=== PATIENT | female | born 1990 | race Caucasian/White ===

== ENCOUNTER 2019-09-16 21:09 | Inpatient (IN) ==
[2019-09-16] MEDS ORDERED: OXYTOCIN 30 UNITS/500 ML BAG IV PRN (21:50)
[2019-09-16] MEDS ORDERED: fentaNYL citrate 100 MCG/2 ML VIAL ONE (21:53)
[2019-09-16] MEDS ORDERED: BUPIVACAINE 0.25% 30 ML VIAL ONE (21:54)
[2019-09-16] MEDS ORDERED: fentaNYL 2MCG/ML ROPIV 1.25MG/ML 100 ML BAG EPI ONE (21:54)
[2019-09-16] MEDS ORDERED: ePHEDrine sulfate 50 MG/ML AMP ONE (21:54)
[2019-09-16] MEDS: LACTATED RINGER'S 1,000 ML IV PRN ×2 (22:00→22:59)
[2019-09-16 22:14] LABS: Hematocrit (blood only) 37.8 % (37-47); Hemoglobin 12.6 g/dL (12.0-16.0); Mean Corpuscular Hemoglobin 27.8 pg (25-34); Mean Corpuscular Volume 83.4 fL (80-100); Mean Platelet Volume 11.7 fL (7.4-10.4); Platelet Count 192 K/uL (130-400); RDW Coefficient of Variation 14.7 % (11.5-14.5); Red Blood Count 4.53 M/uL (4.2-5.4); White Blood Count 10.91 K/uL (4.8-10.8)
--- NOTE | 2019-09-16 22:36 | Anesthesiology Consultation ---
Date of Service September 16, 2019 Assessment & Plan Chart Review Chart Review: Acceptable Risk for Labor Epidural ASA ASA2E Proposed Anesthesia Anesthesia Type: Labor Epidural Risk / Benefits Reviewed With: PT / POA / Parent / Guardian, Accepts Plan and Informed Consent Obtained History Height/Weight Height: 5 ft 4 in Weight: 80.286 kg Allergies Allergy/AdvReac Type Severity Reaction Status Date / Time No Known Allergies Allergy Verified 08/10/19 09:45 Medications Home Medications Medication Instructions Recorded Confirmed Last Taken 1 tab PO DAILY #30 tab 06/06/19 09/16/19 09/16/19 vitamin,calcium,xedbsjzz-qyvb-jnimv acid tablet ferrous sulfate [Iron (ferrous 325 mg PO DAILY 09/16/19 09/16/19 09/15/19 sulfate)] Active Medications Generic Name Dose Route Start Last Admin Trade Name Freq PRN Reason Stop Dose Admin Lactated Ringer's 1,000 mls @ 125 mls/hr 09/16/19 21:50 09/16/19 22:59 Lr IV 09/18/19 21:49 125 mls/hr .Q8H PRN Administration L&D Protocol Protocol Past Medical History Medical History Anemia Exercise / Class Metabolic Activity II 4-5 Yardwork/Stairs/Walk up hill Past Family History Family History Mother Heart disease Father Hypertension Past Surgical History Surgical History H/O oral surgery Past Anesthesia History No Hx of Anesthesia Complications and No Family Hx of Anesthesia Complications History of PONV No Hx of PONV and No Hx of Motion Sickness Social History Smoking Status: Never smoker Hx Alcohol Use: Yes Hx Substance Use: No substance use type: does not use Review of Systems denies fever/cough/ colds/ chest pain/ SOB/ HARPAL denies WI/CVA/Seizure Physical Exam Vital Signs Last Vital Signs Temp 36.5 C 09/16/19 21:27 Pulse 72 09/16/19 23:31 Resp 20 09/16/19 21:27 BP 97/67 L 09/16/19 23:31 Pulse Ox 97 09/16/19 23:28 ENMT Mouth: no dentition abnormality, no chipped teeth and no loose teeth Thyromental Distance: > or= 3.5 Finger Breadths Mallampati Class: II Testing Laboratory Results 09/16/19 22:00
[2019-09-16 22:46] LABS: Mean Corpuscular Hgb Conc 33.3 g/dL (32-36)
[2019-09-16] MEDS ORDERED: fentaNYL 2MCG/ML ROPIV 1.25MG/ML 100 ML BAG EPI PRN (23:34)
[2019-09-16] MEDS ORDERED: DiphenhydrAMINE HCL 50 MG/ML VIAL IV PRN (23:34)
[2019-09-16] MEDS ORDERED: ePHEDrine sulfate 50 MG/ML AMP IV PRN (23:34)
[2019-09-16] MEDS ORDERED: ONDANSETRON INJ 2 MG/ML 2 ML VIAL IV PRN (23:34)
[2019-09-16] MEDS ORDERED: NALOXONE HCL 1 MG in SODIUM CHLORIDE 0.9% 1000ML 1,000 ML IV PRN (23:34)
[2019-09-16] MEDS ORDERED: NALBUPHINE HCL INJ 10 MG/ML AMP IV PRN (23:34)
[2019-09-16] MEDS ORDERED: NALOXONE HCL 0.4 MG/1 ML VIAL/CARP IV PRN (23:34)
--- NOTE | 2019-09-17 01:04 | History and Physical Report ---
DATE OF ADMISSION: 09/16/2019 HISTORY OF PRESENT ILLNESS: The patient is a 29-year-old G1, P0, due date 09/16/2019 making her 40 weeks today, who presented to labor and delivery with contractions every 4-5 minutes. On exam, she was found to be 4 cm dilated. Decision was therefore made to admit patient and anticipate labor. heart rate was category 1. The patient has since been admitted. COURSE: Has been unremarkable. PAST MEDICAL HISTORY: Polycystic ovary. PAST SURGICAL HISTORY: Dental surgery. SOCIAL HISTORY: The patient denies tobacco, drug, or alcohol use. ALLERGIES: No known drug allergies. FAMILY HISTORY: Noncontributory. PHYSICAL EXAMINATION: GENERAL: Well-developed, well-nourished white female in no acute distress. HEART: S1, S2, regular rhythm and rate. LUNGS: Clear to auscultation bilaterally. ABDOMEN: Gravid. PELVIC: By nurse is 4 cm. EXTREMITIES: No cyanosis, clubbing or edema. ASSESSMENT AND PLAN: A 29-year-old G1, P0 at 40 weeks, here for labor. The patient was admitted. We anticipate vaginal delivery.
--- NOTE | 2019-09-17 04:46 | Labor Progress Brief Note ---
Date of Service September 17, 2019 Pt doing well Nurse reports SROM- clear about 30 mins ago and VE was 9 cm/ +1 station Pt denies any significant pain epidural analgesia in place or discomfort FHR; CAT1 Results & Data Vital Signs (Past 12 Hours) Vital Signs Temp Pulse Resp BP Pulse Ox 09/17/19 04:38 81 95 09/17/19 04:34 78 116/68 09/17/19 04:33 76 94 09/17/19 04:32 87 94 09/17/19 04:28 86 95 09/17/19 04:26 77 94 09/17/19 04:23 76 95 09/17/19 04:21 78 94 09/17/19 04:19 68 113/70 09/17/19 04:18 70 95 09/17/19 04:15 85 94 09/17/19 04:13 79 95 09/17/19 04:10 83 94 09/17/19 04:08 83 95 09/17/19 04:04 80 114/70 09/17/19 04:03 80 96 09/17/19 03:58 91 H 97 09/17/19 03:53 84 98 09/17/19 03:49 85 126/77 09/17/19 03:48 87 96 09/17/19 03:43 76 97 09/17/19 03:38 74 96 09/17/19 03:36 82 94 09/17/19 03:34 75 112/63 09/17/19 03:33 91 H 96 09/17/19 03:28 72 94 09/17/19 03:25 72 94 09/17/19 03:23 70 95 09/17/19 03:20 76 109/64 94 09/17/19 03:18 69 93 09/17/19 03:14 66 94 09/17/19 03:13 68 95 09/17/19 03:09 82 93 09/17/19 03:08 71 95 09/17/19 03:04 75 108/65 94 09/17/19 03:03 76 95 09/17/19 02:59 61 94 09/17/19 02:58 62 95 09/17/19 02:53 72 95 09/17/19 02:49 73 109/66 09/17/19 02:48 63 94 09/17/19 02:43 73 95 09/17/19 02:42 71 94 09/17/19 02:38 73 96 09/17/19 02:36 64 111/65 09/17/19 02:35 63 94 09/17/19 02:33 66 96 09/17/19 02:30 74 93 09/17/19 02:28 72 97 09/17/19 02:25 67 93 09/17/19 02:23 66 96 09/17/19 02:20 67 111/68 09/17/19 02:19 73 94 09/17/19 02:18 72 95 09/17/19 02:13 73 95 09/17/19 02:10 73 94 09/17/19 02:08 69 95 09/17/19 02:05 71 111/68 09/17/19 02:03 61 96 09/17/19 01:58 73 95 09/17/19 01:54 75 94 09/17/19 01:53 71 95 09/17/19 01:49 69 111/66 93 09/17/19 01:48 71 95 09/17/19 01:43 70 96 09/17/19 01:38 68 96 09/17/19 01:33 84 96 09/17/19 01:31 88 92 09/17/19 01:28 79 98 09/17/19 01:23 70 95 09/17/19 01:21 70 94 09/17/19 01:20 37.0 C 72 18 116/71 09/17/19 01:18 74 93 09/17/19 01:15 67 94 09/17/19 01:13 72 96 09/17/19 01:08 73 96 09/17/19 01:04 75 112/68 09/17/19 01:03 64 97 09/17/19 00:58 75 96 09/17/19 00:53 70 97 09/17/19 00:49 61 114/66 09/17/19 00:48 65 98 09/17/19 00:43 70 97 09/17/19 00:38 68 98 09/17/19 00:34 82 116/71 09/17/19 00:33 74 97 09/17/19 00:28 74 99 09/17/19 00:23 70 99 09/17/19 00:19 75 116/68 09/17/19 00:18 70 99 10/29/19 00:13 95 H 99 09/17/19 00:08 77 98 09/17/19 00:06 63 107/65 09/17/19 00:04 96 H 93 09/17/19 00:03 96 H 95 09/16/19 23:58 72 98 09/16/19 23:53 71 98 09/16/19 23:48 62 97 09/16/19 23:47 62 108/65 09/16/19 23:43 73 98 09/16/19 23:42 77 108/64 09/16/19 23:38 78 95 09/16/19 23:37 82 108/67 09/16/19 23:33 76 96 09/16/19 23:31 72 97/67 L 09/16/19 23:28 76 18 113/72 97 09/16/19 23:27 78 110/72 09/16/19 23:25 69 116/71 09/16/19 23:23 74 97 09/16/19 23:21 82 114/68 09/16/19 23:19 82 120/61 09/16/19 23:18 84 97 09/16/19 23:17 77 136/71 09/16/19 23:13 72 136/76 97 09/16/19 23:11 69 138/80 09/16/19 23:09 62 137/77 09/16/19 23:08 74 97 09/16/19 23:07 79 137/75 09/16/19 23:05 75 138/73 09/16/19 23:03 76 138/65 97 09/16/19 23:01 90 130/60 09/16/19 22:59 70 144/62 H 09/16/19 22:57 86 139/79 09/16/19 22:55 85 127/79 09/16/19 21:43 84 134/83 09/16/19 21:37 84 141/77 H 09/16/19 21:32 73 130/87 09/16/19 21:27 36.5 C 67 20 142/85 H 09/16/19 21:26 67 142/85 H
[2019-09-17] MEDS: LACTATED RINGER'S 1,000 ML IV PRN (06:41)
[2019-09-17] MEDS ORDERED: METHYLERGONOVINE MALEATE 0.2 MG/ML AMP ONE (07:13)
[2019-09-17] MEDS ORDERED: miSOPROStol 200 MCG TAB PR ONE (07:35)
[2019-09-17] MEDS ORDERED: HYDROCORTISONE ACETATE 25 MG SUPP PR PRN (07:35)
[2019-09-17] MEDS ORDERED: BENZOCAINE 20% AER SPR 82.5 GM CAN EXT PRN (07:35)
[2019-09-17] MEDS ORDERED: SUPERCREAM 0.870% 15 GM JAR EXT PRN (07:35)
[2019-09-17] MEDS ORDERED: BISACODYL 10 MG SUPP PR PRN (07:35)
[2019-09-17] MEDS ORDERED: DIPHTHERIA/TETANUS/PERTUSSIS 0.5 ML SYR/VIAL IM ONE (07:35)
[2019-09-17] MEDS ORDERED: ACETAMINOPHEN 325 MG TAB PO PRN (07:35)
[2019-09-17] MEDS ORDERED: OXYTOCIN 30 UNITS/500 ML BAG IV PRN (07:35)
[2019-09-17] MEDS ORDERED: METHYLERGONOVINE MALEATE 0.2 MG/ML AMP IM ONE (07:35)
[2019-09-17] MEDS ORDERED: LACTATED RINGER'S 1,000 ML IV SCH (07:45)
[2019-09-17 08:08] LABS: Cord Venous Blood HCO3 20 mmol/L (18.4-26.8); Cord Venous Blood PCO2 32 mmHg (30.4-57.2); Cord Venous Blood PO2 32 mmHg (14.1-43.3); Cord Venous Blood pH 7.42 (7.20-7.44)
[2019-09-17 08:09] LABS: Base Excess Cord Arterial Bld -4.1 mEq/L (-9-1.8); CO2 Cord Arterial Blood 52 mmHg (39.1-73.5); HCO3 Cord Arterial Blood 23 mmol/L (19.7-28.5); Oxygen Sat Cord Arterial Blood < 60.0 % (<60); PO2 Cord Arterial Blood 21.9 % (4.1-31.7); pH Cord Arterial Blood 7.27 (7.1-7.38)
--- NOTE | 2019-09-17 08:11 | Delivery Summary ---
DATE OF OPERATION: 09/17/2019 The patient delivered a live infant female in left occiput anterior presentation. There was nuchal cord which was easily reduced. Infant was delivered. Cord was clamped and cut and handed over to the waiting pediatric team. The patient's weight is pending. Apgars 8 and 9. There was terminal meconium. Cord gases and cord blood was obtained. Inspection of the perineum showed a second-degree midline laceration with right labial tear. Both are repaired. The second degree repaired in layers with 2-0 Vicryl and 3-0 Vicryl. Rectal exam post repair shows good sphincter tone. There are no sutures palpated in the rectum. Estimated blood loss is 450 mL. Baby and mother are doing well in recovery. All instruments were removed from the vagina including sponges, retractors, needles and sutures and accounted for x2. I attest to the content of the Intraoperative Record and any orders documented therein. Any exception s are noted below.
--- NOTE | 2019-09-17 09:03 | Anesthesia Procedure Note ---
Date of Service September 17, 2019 Anesthesia Post Epidural Note Vital Signs Vital Signs: Temp Pulse Resp BP Pulse Ox 36.9 C 80 18 144/66 H 96 09/17/19 05:05 09/17/19 08:49 09/17/19 01:20 09/17/19 08:49 09/17/19 07:04 Pain Intensity Abdomen: Pain Intensity: 2 Notes Mental Status: alert / awake / arousable and participated in evaluation Nausea / Vomiting: adequately controlled Pain: adequately controlled Airway Patency, RR, SpO2: stable & adequate BP & HR: stable & adequate Hydration State: stable & adequate Neuraxial Anesthesia: was administered and sensory block is resolving Anesthetic Complications: no major complications apparent and Pt Satisfied with anesthetic care Epidural: Removed without complications and With tip intact
[2019-09-17] MEDS ORDERED: miSOPROStol 200 MCG TAB ONE (10:15)
[2019-09-17] MEDS: IBUPROFEN 600 MG TAB PO PRN (19:59)
[2019-09-17] MEDS: DOCUSATE SODIUM 100 MG CAP PO SCH (20:00)
[2019-09-18 06:47] LABS: Hematocrit (blood only) 31.5 % (37-47); Hemoglobin 10.7 g/dL (12.0-16.0); Mean Corpuscular Volume 82.5 fL (80-100); Mean Platelet Volume 11.1 fL (7.4-10.4); Platelet Count 133 K/uL (130-400); RDW Coefficient of Variation 15.1 % (11.5-14.5); RDW Standard Deviation 45.2 fL (36.4-46.3); Red Blood Count 3.82 M/uL (4.2-5.4)
--- NOTE | 2019-09-18 07:22 | Obstetrical Progress Note ---
Date of Service September 18, 2019 Physical Exam Physical Exam: abdomen soft and non tender no calf tenderness vaginal bleeding scant ambulating well Results & Data Vital Signs (Past 12 Hours) Vital Signs Temp Pulse Resp BP BP Pulse Ox 09/18/19 03:00 36.3 C L 60 16 111/76 09/17/19 23:15 36.6 C 68 16 111/72 09/17/19 19:31 37.3 C 84 16 125/82 97
[2019-09-18 08:05] VITALS: O2SAT 98
[2019-09-18] MEDS: DOCUSATE SODIUM 100 MG CAP PO SCH (08:44)
[2019-09-18] MEDS: FERROUS SULFATE 325 MG TAB PO SCH (08:44)
[2019-09-18] MEDS: PRENATAL VITAMIN 1 TAB PO SCH (08:44)
[2019-09-18] MEDS: IBUPROFEN 600 MG TAB PO PRN ×2 (08:44→17:41)
[2019-09-18] MEDS ORDERED: BISACODYL 5 MG TABEC PO SCH (20:00)
[2019-09-19 07:57] LABS: Hematocrit (blood only) 32.4 % (37-47); Hemoglobin 10.9 g/dL (12.0-16.0)
[2019-09-19] MEDS: PRENATAL VITAMIN 1 TAB PO SCH (08:30)
[2019-09-19] MEDS: FERROUS SULFATE 325 MG TAB PO SCH (08:30)
[2019-09-19] MEDS: IBUPROFEN 600 MG TAB PO PRN (08:31)
[2019-09-19] MEDS: DOCUSATE SODIUM 100 MG CAP PO SCH (08:31)
--- NOTE | 2019-09-19 10:15 | Obstetrical Progress Note ---
Date of Service September 19, 2019 Assessment & Plan (1) normal course: PPD #2 pt doing well d/c home with instructions Subjective Ambulation: ambulating normally Voiding: no voiding problems Passing Gas:: Yes Diet Tolerance:: regular diet Lochia:: Small Feeding Type:: breast feeding Review of Systems All systems reviewed & are unremarkable except as noted in HPI & below Physical Exam Constitutional WD/WN, vitals as above well developed and well nourished Eyes PERRL, conjunctivae normal, anicteric sclerae Neck trachea midline, no thyromegaly Respiratory normal respiratory effort, lungs clear to auscultation Auscultation: no crackles, no rales and no wheezes Cardiovascular RRR, no murmur, no edema Gastrointestinal (Abdomen) normal bowel sounds, soft, nontender, no hepatosplenomegaly Uterus is below umbilicus Musculoskeletal no cyanosis or clubbing, extremities motor strength 5/5 Skin no rashes, warm and dry Neurologic patellar DTR's 2+ bilat, sensation intact Psychiatric A+Ox3, euthymic affect Genitourinary normal external appearance Results & Data Vital Signs (Past 12 Hours) Vital Signs Temp Pulse Resp BP 09/19/19 00:02 36.6 C 66 18 107/70
[2019-09-19 10:34] VITALS: BP 110/74; PULSE 77; TEMP 97.7
== END 2019-09-19 13:05 | disposition home or self-care (01) | DRG 807 ==
LOC: OPB 21:09 → 4S1 21:18 → 4S2 09-17 09:54

== ENCOUNTER 2021-10-20 07:47 | Inpatient (IN) ==
[2021-10-20] MEDS ORDERED: OXYTOCIN 30 UNITS/500 ML BAG IV PRN ×2 (08:06→10:16)
--- NOTE | 2021-10-20 08:13 | History & Physical Report ---
Date of Service October 20, 2021 Assessment & Plan (1) : Plan: anticipate normal delivery Admission and Anticipated Discharge Date Admission Date: October 20, 2021 History of Present Illness Chief Complaint: term in labor Primary Care Provider: Bryson Mace MD 31 F [id number] admitted in active labor at 40.1 weeks. Patient presents at 8 cm in active labor. Her GBS is negative. Covid is pending. Allergies Allergy/AdvReac Type Severity Reaction Status Date / Time No Known Allergies Allergy Verified 08/10/19 09:45 Home Medications Medication Instructions Recorded Confirmed Type prenat.vits,noel,ypw-bzbw-igioh 1 tab PO DAILY #30 tab 06/06/19 09/16/19 Rx ferrous sulfate 325 mg (65 mg 325 mg PO DAILY 09/16/19 09/16/19 History iron) tablet (Iron (ferrous sulfate)) ibuprofen 600 mg tablet 600 mg PO Q4H #24 tab 09/19/19 Rx Patient History Medical History (Updated 10/20/21 @ 08:13 by Richard Vergara MD) Anemia Surgical History H/O oral surgery Family History Mother Heart disease Father Hypertension Denies family history of Colon cancer Ovarian cancer Prostate cancer Myocardial infarction Breast cancer Social History Smoking Status: Never smoker Hx Alcohol Use: Yes Hx Substance Use: No Preferred Language: Yi Communication Ability: Effective Electro Tech Required: No Beliefs That Will Affect Care: None marital status: Current Living Situation: Spouse current occupational status: employed Feels Safe at Home: Yes Physical Activity Frequency: 3-4 Times per Week Assistive Devices: None OB History in past x1 with fractured clavicle detected 1 week after . No history of large baby or shoulder dystocia per patient. HEALTH INFORMATION CLERK History neg Review of Systems All systems reviewed & are unremarkable except as noted in HPI & below Physical Exam Constitutional: WD/WN, vitals as above Eyes: PERRL, conjunctivae normal, anicteric sclerae Respiratory: normal respiratory effort, lungs clear to auscultation Cardiovascular: RRR, no murmur, no edema Musculoskeletal: no cyanosis or clubbing, extremities motor strength 5/5 Neurologic: patellar DTR's 2+ bilat, sensation intact Genitourinary: normal external appearance OB Exam Abdomen: + vertex and + estimated weight (7.5-8 lbs.) OB Exam Monitor Tracing: + external FHT monitor used, + external uterine monitor used, + category I and + normal FHT variability Results & Data ([facility]) Vital Signs (Past 12 Hours) Vital Signs Temp Pulse Resp BP 10/20/21 07:51 36.9 C 86 22 114/62 Monitoring External Monitor Cat 1
[2021-10-20] MEDS: LACTATED RINGER'S 1,000 ML IV PRN ×2 (08:15→09:04)
[2021-10-20] MEDS ORDERED: SODIUM CHLORIDE 0.9% INJ 10 ML VIAL ONE (08:51)
[2021-10-20] MEDS ORDERED: BUPIVACAINE 0.25% 30 ML VIAL ONE (08:51)
[2021-10-20] MEDS ORDERED: ePHEDrine sulfate 50 MG/ML AMP ONE (08:51)
[2021-10-20] MEDS ORDERED: fentaNYL citrate 100 MCG/2 ML VIAL ONE (08:52)
[2021-10-20] MEDS ORDERED: fentaNYL 2MCG/ML ROPIVACAINE 1.25MG/ML 100 ML BAG EPI ONE (08:52)
[2021-10-20 09:03] LABS: Hematocrit (blood only) 34.3 % (37-47); Hemoglobin 11.3 g/dL (12.0-16.0); Mean Corpuscular Hemoglobin 28.2 pg (25-34); Mean Corpuscular Hgb Conc 32.9 g/dL (32-36); Mean Corpuscular Volume 85.5 fL (80-100); Mean Platelet Volume 10.9 fL (7.4-10.4); Platelet Count 132 K/uL (130-400); RDW Coefficient of Variation 14.9 % (11.5-14.5); RDW Standard Deviation 46.5 fL (36.4-46.3); Red Blood Count 4.01 M/uL (4.2-5.4); White Blood Count 10.14 K/uL (4.8-10.8)
[2021-10-20] MEDS ORDERED: NALOXONE HCL 0.4 MG/1 ML VIAL/CARP IV PRN (09:03)
[2021-10-20] MEDS ORDERED: NALOXONE HCL 1 MG in SODIUM CHLORIDE 0.9% 1000ML 1,000 ML IV PRN (09:03)
[2021-10-20] MEDS ORDERED: NALBUPHINE HCL INJ 10 MG/ML AMP IV PRN (09:03)
[2021-10-20] MEDS ORDERED: diphenhydrAMINE 50 MG/ML VIAL IV PRN (09:03)
[2021-10-20] MEDS ORDERED: fentaNYL 2MCG/ML ROPIVACAINE 1.25MG/ML 100 ML BAG EPI PRN (09:03)
[2021-10-20] MEDS ORDERED: ePHEDrine sulfate 50 MG/ML AMP IV PRN (09:03)
--- NOTE | 2021-10-20 09:22 | Labor Progress Brief Note ---
Date of Service October 20, 2021 Assessment & Plan Admission and Anticipated Discharge Date Admission Date: October 20, 2021 Physical Exam Genitourinary: Manual OB Exam: + cervical dilation 10 cm, + cervical effacement 100%, + station 0 and + amniotic fluid (AROM with Amni-hook clear fluid at 0909) clear OB Exam Monitor Tracing: + external FHT monitor used, + external uterine monitor used, + category I and + normal FHT variability Results & Data ([facility]) Vital Signs (Past 12 Hours) Vital Signs Temp Pulse Resp BP Pulse Ox 10/20/21 09:16 89 93 10/20/21 09:11 88 98 10/20/21 09:06 98 H 97 10/20/21 08:06 36.9 C 20 10/20/21 07:51 36.9 C 86 22 114/62
[2021-10-20] MEDS ORDERED: LIDOCAINE 1% LOCAL 20 ML VIAL ONE (09:56)
--- NOTE | 2021-10-20 10:15 | Delivery Summary ---
Vaginal Delivery Summary Date of Service October 20, 2021 Vaginal Delivery Summary Delivery Note live female TK over intact perineum with delayed cord clamping and Apgars 8/9 weight pending. Cord blood obtained followed by spontaneous delivery of intact placenta. Small first degree tear repaired with 3/0 Vicryl suture and 1% Lidocaine plain. EBL 150 ml. Final sponge, needle and instrument count are correct. Mom and baby stable.
[2021-10-20] MEDS ORDERED: DIPHTHERIA/TETANUS/PERTUSSIS 0.5 ML SYR/VIAL IM ONE (10:16)
[2021-10-20] MEDS ORDERED: ACETAMINOPHEN 325 MG TAB PO PRN (10:16)
[2021-10-20] MEDS ORDERED: bisacodyL 10 MG SUPP PR PRN (10:16)
[2021-10-20] MEDS ORDERED: HYDROCORTISONE ACETATE 25 MG SUPP PR PRN (10:16)
[2021-10-20] MEDS ORDERED: SUPERCREAM 0.870% 15 GM JAR EXT PRN (10:16)
[2021-10-20] MEDS ORDERED: BENZOCAINE 20% AER SPR 82.5 GM CAN EXT PRN (10:16)
[2021-10-20] MEDS ORDERED: IBUPROFEN 600 MG TAB PO PRN (10:16)
[2021-10-20] MEDS: DOCUSATE SODIUM 100 MG CAP PO SCH (21:38)
[2021-10-21 07:21] LABS: Hematocrit (blood only) 32.4 % (37-47); Hemoglobin 10.4 g/dL (12.0-16.0); Mean Corpuscular Hemoglobin 27.9 pg (25-34); Mean Corpuscular Hgb Conc 32.1 g/dL (32-36); Mean Corpuscular Volume 86.9 fL (80-100); Mean Platelet Volume 10.3 fL (7.4-10.4); Platelet Count 148 K/uL (130-400); RDW Coefficient of Variation 15.3 % (11.5-14.5); RDW Standard Deviation 49.2 fL (36.4-46.3); Red Blood Count 3.73 M/uL (4.2-5.4); White Blood Count 10.97 K/uL (4.8-10.8)
[2021-10-21] MEDS ORDERED: PRENATAL VITAMIN 1 TAB PO SCH (08:00)
[2021-10-21] MEDS: DOCUSATE SODIUM 100 MG CAP PO SCH (08:34)
[2021-10-21] MEDS ORDERED: NON-FORMULARY MEDICATION (Prenat.Vits,Cal,Min-Iron-Folic tablet) PO SCH (09:00)
--- NOTE | 2021-10-21 10:13 | Obstetrical Progress Note ---
Date of Service October 21, 2021 Subjective Ambulation: ambulating normally Voiding: no voiding problems Passing Gas:: Yes Diet Tolerance:: regular diet Lochia:: Small Feeding Type:: breast feeding Current Pain Level(1-10): 0 doing well would like to go home today Physical Exam Constitutional WD/WN, vitals as above comfortable abdomen soft and non-tender fundus firm neg Guru's for d/c today Results & Data ([facility]) Vital Signs (Past 12 Hours) Vital Signs Temp Pulse Resp BP Pulse Ox 10/21/21 07:43 36.8 C 82 20 105/72 98 10/21/21 04:40 36.6 C 76 18 103/65 97 10/21/21 00:00 36.7 C 69 18 107/70 97 Laboratory Results 10/20/21 10/20/21 10/21/21 08:44 Unknown 06:58 WBC 10.14 RBC 4.01 L Hgb 11.3 L Hct 34.3 L MCV 85.5 MCH 28.2 MCHC 32.9 RDW Std Deviation 46.5 H RDW Coeff of Kole 14.9 H Plt Count 132 MPV 10.9 H SARS-CoV-2, RNA, NAAT NEGATIVE Blood Type B Negative Antibody Screen NEGATIVE Screen Negative 10/21/21 06:58 WBC 10.97 H RBC 3.73 L Hgb 10.4 L Hct 32.4 L MCV 86.9 MCH 27.9 MCHC 32.1 RDW Std Deviation 49.2 H RDW Coeff of Kole 15.3 H Plt Count 148 MPV 10.3 SARS-CoV-2, RNA, NAAT Blood Type Antibody Screen Screen
[2021-10-21] MEDS ORDERED: bisacodyL 5 MG TABEC PO SCH (20:00)
== END 2021-10-21 15:00 | disposition home or self-care (01) | DRG 807 ==
LOC: 4S1 07:47 → 4N 15:19

== ENCOUNTER 2023-04-28 18:46 | Inpatient (IN) ==
[2023-04-28] MEDS ORDERED: OXYTOCIN 30 UNITS/500 ML BAG IV PRN (19:31)
[2023-04-28] MEDS ORDERED: LIDOCAINE 1% LOCAL 20 ML VIAL INFIL PRN (19:31)
--- NOTE | 2023-04-28 19:38 | Labor Progress Brief Note ---
Date of Service April 28, 2023 Subjective Patient with painful contractions she's breathing through, and no LOF/VB. Good FM. Assessment & Plan (1) Normal labor: Plan: Admit, epidural on request, expectant management for now, augment PRN. Physical Exam Genitourinary: /-2 Vertex palpable Bulging bag FHT Cat 1 [place] Q2 Results & Data Vital Signs (Past 12 Hours) Vital Signs Temp Pulse Resp BP 04/28/23 18:55 98.8 F 114 H 22 123/77 Coding Level of Care Code None Diagnoses Normal labor O80; Z37.9
[2023-04-28] MEDS: LACTATED RINGER'S 1,000 ML IV PRN ×2 (19:51→20:56)
[2023-04-28] MEDS ORDERED: ePHEDrine sulfate 50 MG/ML AMP ONE (20:33)
[2023-04-28] MEDS ORDERED: SODIUM CHLORIDE 0.9% PF INJ 10 ML VIAL ONE (20:34)
[2023-04-28] MEDS ORDERED: LIDOCAINE 2%/EPINEPHRINE 1:200,000 20 ML PF ONE (20:34)
[2023-04-28] MEDS ORDERED: BUPIVACAINE 0.25% PF 30 ML VIAL ONE (20:34)
[2023-04-28] MEDS ORDERED: fentaNYL citrate PF 100 MCG/2 ML VIAL ONE (20:34)
[2023-04-28] MEDS ORDERED: fentaNYL 2MCG/ML ROPIVACAINE 1.25MG/ML 100 ML BAG EPI ONE (20:35)
--- NOTE | 2023-04-28 21:25 | Anesthesiology Consultation ---
Date of Service April 28, 2023 Assessment & Plan Chart Review Chart Review: Acceptable Risk for Labor Epidural Consults Requested none History Height/Weight Height: 5 ft 3 in Weight: 78.29 kg Allergies Allergy/AdvReac Type Severity Reaction Status Date / Time No Known Allergies Allergy Verified 04/24/23 14:07 Medications Home Medications Medication Instructions Recorded Confirmed Last Taken prenat.vits,noel,pyj-jjji-goczg 1 tab PO DAILY #30 tabs 06/06/19 04/28/23 04/26/23 08:00 Active Medications Generic Name Dose Route Start Last Admin Trade Name Freq PRN Reason Stop Dose Admin Lactated Ringer's 1,000 mls @ 125 mls/hr 04/28/23 19:31 04/28/23 20:56 Lr IV 04/30/23 19:30 125 mls/hr .Q8H PRN Administration L&D Protocol Protocol Past Medical History Medical History (Updated 04/28/23 @ 19:37 by Krystal Trevizo MD) Anemia Past Family History Family History Mother Heart disease Father Hypertension Aunt Diabetes Uncle Diabetes Grandfather (Paternal) Emphysema of lung Denies family history of Colon cancer Ovarian cancer Prostate cancer Myocardial infarction Breast cancer Past Surgical History Surgical History H/O oral surgery Social History Smoking Status: Never smoker Do You Dip or Chew Tobacco: No Hx Alcohol Use: No Hx Substance Use: No substance use type: does not use Physical Exam Vital Signs Last Vital Signs Temp 37.1 C 04/28/23 18:55 Pulse 101 H 04/28/23 21:23 Resp 22 04/28/23 18:55 BP 111/60 04/28/23 21:23 Pulse Ox 97 04/28/23 21:23
[2023-04-28 21:27] LABS: Hematocrit (blood only) 31.5 % (37.0-47.0); Hemoglobin 9.9 g/dl (12.0-16.0); Mean Corpuscular Hemoglobin 24.3 pg (25.0-34.0); Mean Corpuscular Hgb Conc 31.4 g/dL (32.0-36.0); Mean Corpuscular Volume 77.2 fL (80.0-100.0); Platelet Count 155 K/uL (130-400); RDW Coefficient of Variation 15.7 % (11.5-14.5); RDW Standard Deviation 42.3 fL (36.4-46.3); Red Blood Count 4.08 M/uL (4.20-5.40); White Blood Count 10.14 K/ul (4.8-10.8)
[2023-04-28] MEDS ORDERED: LIDOCAINE 2% MPF LOCAL 5 ML VIAL EPI PRN (21:27)
[2023-04-28] MEDS ORDERED: BUPIVACAINE 0.25% PF 30 ML VIAL EPI PRN (21:27)
[2023-04-28] MEDS ORDERED: ROPIVACAINE 0.5% PF 5 MG/ML 20 ML VIAL EPI PRN (21:27)
[2023-04-28] MEDS ORDERED: fentaNYL citrate PF 100 MCG/2 ML VIAL EPI PRN (21:27)
[2023-04-28] MEDS ORDERED: NALBUPHINE HCL INJ 10 MG/ML AMP IV PRN (21:27)
[2023-04-28] MEDS ORDERED: diphenhydrAMINE 50 MG/ML VIAL IV PRN (21:27)
[2023-04-28] MEDS ORDERED: fentaNYL 2MCG/ML ROPIVACAINE 1.25MG/ML 100 ML BAG EPI PRN (21:27)
[2023-04-28] MEDS ORDERED: NALOXONE HCL 1 MG in SODIUM CHLORIDE 0.9% 1000ML 1,000 ML IV PRN (21:27)
[2023-04-28] MEDS ORDERED: SODIUM CHLORIDE 0.9% PF INJ 10 ML VIAL EPI STA (21:27)
[2023-04-28] MEDS ORDERED: BUPIVACAINE 0.25% PF 30 ML VIAL EPI STA (21:27)
[2023-04-28] MEDS ORDERED: ePHEDrine sulfate 50 MG/ML AMP IV PRN (21:27)
[2023-04-28] MEDS ORDERED: LIDOCAINE 2%/EPINEPHRINE 1:200,000 20 ML PF EPI STA (21:27)
[2023-04-28] MEDS ORDERED: SODIUM CHLORIDE 0.9% PF INJ 10 ML VIAL EPI PRN (21:27)
[2023-04-28] MEDS ORDERED: NALOXONE HCL 0.4 MG/1 ML VIAL/CARP IV PRN (21:27)
[2023-04-28] MEDS ORDERED: fentaNYL citrate PF 100 MCG/2 ML VIAL EPI STA (21:27)
--- NOTE | 2023-04-28 23:15 | Labor Progress Brief Note ---
Date of Service April 28, 2023 Subjective Comfortable with epidural Assessment & Plan (1) Normal labor: Plan: Cont exp mgmt, making nice progress. Admission and Anticipated Discharge Date Admission Date: April 28, 2023 Physical Exam Genitourinary: / ROM with meconium stained fluid noted FHT Cat 1 [place] Q2min Results & Data Vital Signs (Past 12 Hours) Vital Signs Temp Pulse Resp BP Pulse Ox 04/28/23 23:08 93 H 97 04/28/23 23:03 105 H 109/70 98 04/28/23 22:58 97 H 98 04/28/23 22:53 98 H 96 04/28/23 22:48 100 H 97 04/28/23 22:46 96 H 99/58 L 04/28/23 22:43 105 H 97 04/28/23 22:38 98 H 97 04/28/23 22:33 95 H 98 04/28/23 22:32 100 H 99/57 L 04/28/23 22:28 107 H 98 04/28/23 22:23 97 H 98 04/28/23 22:18 100 H 98 04/28/23 22:16 97.9 F 98 H 107/52 L 04/28/23 22:13 101 H 98 04/28/23 22:08 103 H 98 04/28/23 22:03 108 H 99 04/28/23 21:58 103 H 97 04/28/23 21:54 100 H 124/63 04/28/23 21:53 99 H 98 04/28/23 21:49 106 H 134/75 04/28/23 21:48 108 H 97 04/28/23 21:44 111 H 121/60 04/28/23 21:43 109 H 99 04/28/23 21:38 106 H 110/60 98 04/28/23 21:33 98 04/28/23 21:33 109 H 04/28/23 21:33 104 H 107/58 L 04/28/23 21:28 103 H 97 04/28/23 21:27 98 H 110/61 04/28/23 21:25 99 H 113/59 L 04/28/23 21:23 101 H 111/60 97 04/28/23 21:21 99 H 118/62 04/28/23 21:19 98 H 117/64 04/28/23 21:18 96 H 98 04/28/23 21:17 95 H 112/55 L 04/28/23 21:15 98 H 121/63 04/28/23 21:13 101 H 124/70 97 04/28/23 21:11 101 H 125/68 04/28/23 21:08 97 H 98 04/28/23 21:09 100 H 113/72 04/28/23 21:07 96 H 115/74 04/28/23 21:03 99 04/28/23 21:03 102 H 04/28/23 21:03 93 H 114/70 04/28/23 18:55 98.8 F 114 H 22 123/77 Coding Level of Care Code None Diagnoses Normal labor O80; Z37.9
[2023-04-29] MEDS ORDERED: fentaNYL citrate PF 100 MCG/2 ML VIAL ONE (00:20)
[2023-04-29] MEDS ORDERED: NURSING L&D Epidural Breakthrough Pain Update ONE (00:33)
--- NOTE | 2023-04-29 00:54 | Anesthesia Procedure Note ---
Date of Service April 29, 2023 Anesthesia Epidural Re-Dose Vital Signs Temp Pulse Resp BP Pulse Ox 37.0 C 108 H 18 114/56 L 91 04/29/23 00:15 04/29/23 00:51 04/29/23 00:15 04/29/23 00:51 04/29/23 00:50 Notes Pain Intensity: 0 Dilatation (cm): 10.0 Effacement (%): 100 Heart Rate: 140 Called by nursing to evaluate epidural as the patient is having increased pain. The epidural was re-dosed with the following medications (all medications via epidural route) after negative aspiration of the epidural catheter for CSF/HEME. 2% lidocaine 5ml with fentanyl 100mcg. After Epidural Re-Dose Mental Status: alert / awake / arousable Pain: improving with treatment Airway Patency, RR, SpO2: stable & adequate BP & HR: stable & adequate
[2023-04-29] MEDS: OXYTOCIN 30 UNITS/500 ML BAG IV PRN ×2 (01:10→02:40)
--- NOTE | 2023-04-29 01:18 | Delivery Summary ---
Vaginal Delivery Summary Date of Service April 29, 2023 Vaginal Delivery Summary DIAGNOSES: 1. Todd intrauterine at 38w6d gestation. 2. Spontaneous onset of labor. 3. Group B Streptococcus Neg. PROCEDURE: Spontaneous vaginal delivery and repair of first degree laceration. Shoulder dystocia, 60sec. SURGEON: Krystal Trevizo MD. KITCHEN HELP HANDYMAN: None. ESTIMATED BLOOD LOSS: 250 mL. COMPLICATIONS: None. PLACENTA: Spontaneous and intact with a 3-vessel cord. DISPOSITION: Stable to labor and delivery. DESCRIPTION: The patient pushed well and brought the head to in DOA position. There was one loop of nuchal cord. The left shoulder was an terior. The shoulders and body did not immediately deliver with the next push, so assistance was called and shoulder dystocia maneuvers were undertaken. With Marilu position and suprapubic pressure, there was progress but not complete delivery of the shoulder. A rotational maneuver was utilized, and the posterior shoulder then delivered. The anterior shoulder and remainder of the body follow ed. The was placed on the maternal abdomen. It was vigorous and moving all extremities, and making respiratory efforts. The cord was doubly clamped by the MD and then cut, so the could be moved promptly to the warmer for resuscitation. The placenta delivered spontaneously and was noted to be intact and with a 3VC, but small and with significant amounts of calcification as well as meconium staining. The cervix, vagina and perineum were examined and were found to have a first degree perineal laceration which was repaired with 3-0 vicryl in running locked manner. The fundus was firm and lochia minimal immediately after delivery. [facility] [place] Vaginal Delivery Codes: 07724 global code for the antepartum, delivery, and post-
--- NOTE | 2023-04-29 01:36 | Anesthesia Procedure Note ---
Date of Service April 29, 2023 Anesthesia Post Epidural Note Vital Signs Vital Signs: Temp Pulse Resp BP Pulse Ox 37.0 C 136 H 18 120/60 98 04/29/23 00:15 04/29/23 01:34 04/29/23 00:15 04/29/23 01:34 04/29/23 01:33 Pain Intensity Abdomen: Pain Intensity: 0 Notes Mental Status: alert / awake / arousable Nausea / Vomiting: adequately controlled Pain: adequately controlled Airway Patency, RR, SpO2: stable & adequate BP & HR: stable & adequate Hydration State: stable & adequate Neuraxial Anesthesia: was administered and sensory block is resolving Anesthetic Complications: no major complications apparent and Pt Satisfied with anesthetic care Epidural: Removed without complications and With tip intact
[2023-04-29] MEDS ORDERED: IBUPROFEN 600 MG TAB PO PRN (03:08)
[2023-04-29] MEDS ORDERED: MEASLES, MUMPS & RUBELLA VIRUS VIAL SQ ONE (03:08)
[2023-04-29] MEDS ORDERED: ACETAMINOPHEN 325 MG TAB PO PRN (03:08)
[2023-04-29] MEDS ORDERED: BENZOCAINE 20% AER SPR 82.5 GM CAN EXT PRN (03:08)
[2023-04-29] MEDS ORDERED: DIPHTHERIA/TETANUS/PERTUSSIS Vaccine (Tdap, Age 7+yrs) 0.5mL SYR/VL IM ONE (03:08)
[2023-04-29] MEDS ORDERED: HYDROCORTISONE ACETATE 25 MG SUPP PR PRN (03:08)
[2023-04-29] MEDS ORDERED: oxyCODONE/ACETAMINOPHEN 5mg/325mg TAB PO PRN (03:08)
[2023-04-29] MEDS: PRENATAL VITAMIN 1 TAB PO SCH (09:31)
--- NOTE | 2023-04-30 07:29 | Obstetrical Progress Note ---
Date of Service April 30, 2023 Assessment & Plan (1) Encounter for care and examination after delivery: 33 yo PP1 from , doing well -Meeting all pp milestones -B-, s/p rhogam/rubella immune/ -f/u 6 weeks for appt. Baby having sugar issues so likely will stay, if peds d/c's baby pt is ok to go home Subjective Ambulation: ambulating normally Voiding: no voiding problems Passing Gas:: Yes Diet Tolerance:: regular diet Lochia:: Small Feeding Type:: breast feeding Pain well managed with medication Review of Systems Denies fevers, chills, n/v, JEWELL, CP, SOB Physical Exam Constitutional WD/WN, vitals as above no acute distress Respiratory normal respiratory effort, lungs clear to auscultation Cardiovascular RRR, no murmur, no edema Gastrointestinal (Abdomen) Percussion/Palpation: abdomen soft; abdomen nontender fundus firm at umbilicus and NT Musculoskeletal BLE symmetric, nonerythematous, nontender Results & Data Vital Signs (Past 12 Hours) Vital Signs Temp Pulse Resp BP Pulse Ox O2 Del Method 04/30/23 00:30 97.9 F 83 18 110/74 98 Room Air 04/29/23 20:56 97.9 F 87 18 108/70 97 Room Air
[2023-04-30 07:44] LABS: Hematocrit (blood only) 30.9 % (37.0-47.0); Hemoglobin 9.7 g/dl (12.0-16.0); Mean Corpuscular Hemoglobin 24.3 pg (25.0-34.0); Mean Corpuscular Hgb Conc 31.4 g/dL (32.0-36.0); Mean Corpuscular Volume 77.3 fL (80.0-100.0); Mean Platelet Volume 10.7 fL (9.4-12.4); Platelet Count 133 K/uL (130-400); RDW Coefficient of Variation 15.9 % (11.5-14.5); RDW Standard Deviation 42.7 fL (36.4-46.3)
[2023-04-30] MEDS: PRENATAL VITAMIN 1 TAB PO SCH (08:56)
[2023-04-30] MEDS ORDERED: FERROUS SULFATE 325 MG TAB PO SCH (14:45)
== END 2023-04-30 21:40 | disposition home or self-care (01) | DRG 807 ==
LOC: OPB 18:46 → 4S1 18:49 → 4E2 04-29 04:07